=== PATIENT | female | born 1960 | race Caucasian/White ===

== ENCOUNTER → 2021-04-30 | Outpatient (CLI) | payer MEDICARE, OTHER | LOC: HEART 5 11:30 | DX: I48.91 Unspecified atrial fibrillation (principal) ==

== ENCOUNTER → 2021-12-03 | Outpatient (CLI) | payer MEDICARE, OTHER | LOC: EMI 09:15 | DX: G40.209 Localization-related (focal) (partial) symptomatic epilepsy and epileptic syndromes with complex partial seizures, not intractable, without status epilepticus (principal); R41.3 Other amnesia | CPT/HCPCS: 70551 ==